=== PATIENT | female | born 1980 | race Caucasian/White ===

== ENCOUNTER 2016-11-03 14:10 | Emergency (ER) | payer MEDICAID ==
[~2016-11-03 14:10] MED LIST: PRENCAP6 PO; VENTAER INH
--- NOTE | 2016-11-03 16:06 | PD ---
HPI Chief Complaint conTractions Date Seen: Nov 03, 2016 Travel History International Travel<30 Days: No Contact w/Intl Traveler<30Days: No Known Affected Area: No History of Present Illness HPI This 36-year-old white female previous and subsequent 2 presents c/o of pain and contractions no bleeding or SROM Para: 3 : 6 History Obstetric History Obstetric History 1 , 2 VBACs Past Surgical History Narrative Surgical One section Family History Family History: Negative Social History Alcohol Use: No Tobacco Use: No Substance Abuse: No Allergies-Medications (Allergen,Severity, Reaction): Coded Allergies: No Known Allergies (Unverified , 04/24/16) Home Meds Active Scripts [id number] 18 Gm Aero2 Puff INH Q4H PRN (WHEEZING) #1 BOX Prov:AbdoulCharisma 01/29/16 Reported Medications Mv & Min W/Fe Fumarat ( 1) Cap1 Cap PO DAILY 04/24/16 Review of Systems General / Constitutional: No: Fever, Weight Gain, Chills, Other Gastrointestinal: Abdominal Pain Physical Exam Narrative GENERAL: Well-nourished, well-developed patient. SKIN: Warm and dry. HEAD: Normocephalic and atraumatic. EYES: No scleral icterus. No injection or drainage. ENT: No nasal drainage noted. Mucous membranes pink. Airway patent. NECK: Supple, trachea midline. No JVD. CARDIOVASCULAR: Regular rate and rhythm without murmurs, gallops, or rubs. RESPIRATORY: Breath sounds equal bilaterally. No accessory muscle use. BREASTS: Bilateral exam showed no masses , no retractions, no nipple discharge. ABDOMEN/GI: Abdomen soft, non-tender, bowel sounds present, no rebound, no guarding Gravid to [-term] weeks size Fundal Height: [-37 cm] GENITOURINARY: External Genitalia: intact and normal in appearance BUS glands: [-] Cervix: [-] Posterior Dilatation: [-3] Effacement: [50-] Station: [-3] Presentation: [vtx-] Membranes: [intact ] Uterine Contractions: [Irregular-] FHT's: Category: [1-] Baseline: [-144] Reactive: [yes-] Variability: [mod-] Decels: [none-] EXTREMITIES: No cyanosis or edema. BACK: Nontender without obvious deformity. No CVA tenderness. NEUROLOGICAL: Awake and alert. Motor and sensory grossly within normal limits. Five out of 5 muscle strength in all muscle groups. Normal speech. Data Data Orders Vital Signs (Adult) .ON ADMISSION (11/03/16 15:40) ^ Labor Status (11/03/16 15:40) Urinalysis - C+S If Indicated (11/03/16 15:40) MDM Interpretation(s) Condition is 36-year-old white female's previous and VBACs 38 weeks complaining of pain and contractions denies bleeding or rupture the membranes. heart rate tracing is reactive and she is jose irregularly Plan Patient is 38 weeks jose irregularly with the false labor-like pattern, heart rate tracing is reactive cervix is 3 cm fairly thick and posterior and is unchanged over the last hour of observation, patient desires a pain medication will give her an IM injection of Demerol Phenergan To go home to rest and return for increasing pain or problems worsening of labor etc. Diagnosis Diagnosis: Primary Impression: False labor after 37 weeks of gestation without delivery Additional Impression: Previous delivery, antepartum Disposition: DISCHARGE HOME Condition: Stable Patient Instructions: General Instructions Departure Forms: Tests/Procedures Huang Arreola II, MD Nov 03, 2016 16:06
[2016-11-03] MEDS ORDERED: MEPERIDINE HCL 50 MG/ML VIAL IM ONE (16:15)
[2016-11-03] MEDS ORDERED: PROMETHAZINE INJ 25 MG/ML VIAL IM ONE (16:15)
[2016-11-03 16:30] LABS: BACTERIA, URINE RARE /hpf; BLOOD, URINE NEG (NEG); COMMENT (UR) CULTURE INDICATED; CULTURE IF INDICATED CULTURE INDICATED; GLUCOSE,URINE TRACE mg/dL (NEG); KETONE, URINE NEG (NEG); MUCUS URINE MANY /lpf (OCC); NITRITE,URINE NEG (NEG); SQUAMOUS EPITHELIAL CELL URINE 11 /hpf (0-5); URINE COLOR YELLOW (YELLW/STRAW)
[2017-01-05] MEDS ORDERED: PREN29TA PO (11:06)
[2017-01-09] MEDS ORDERED: VENTAER INH (06:22)
== END 2016-11-03 16:40 | disposition home or self-care (01) ==
LOC: HOBED 14:10
DX: O47.1 False labor at or after 37 completed weeks of gestation (principal); O34.219 Maternal care for unspecified type scar from previous cesarean delivery; Z3A.38 38 weeks gestation of pregnancy; R82.90 Unspecified abnormal findings in urine
CPT/HCPCS: 59025; 81001; 87086; 96372; 99284; J2175; J2550

== ENCOUNTER 2016-11-17 12:50 | Inpatient (IN) | payer MEDICAID ==
[2016-11-17] VITALS (74 sets, daily range): BP systolic 110–161; BP diastolic 50–87; PULSE 68–91; RESP 16–20; TEMP 97.8–98.1
[2016-11-17] MEDS ORDERED: MINERAL OIL 10 ML VIAL TOP PRN (13:45)
[2016-11-17] MEDS ORDERED: LIDOCAINE HCL 1% 50 ML VIAL INFIL PRN (13:45)
[2016-11-17] MEDS ORDERED: OXYTOCIN 30 UNITS 500ML PREMIX IV ONE (13:45)
[2016-11-17] MEDS ORDERED: CITRIC ACID-SODIUM CITRATE LIQ 30 ML UDC PO SCH (13:45)
[2016-11-17] MEDS ORDERED: NS 500 ML BOLUS IV PRN (13:45)
[2016-11-17] MEDS ORDERED: LACTATED RINGER'S 1000 ML BOLUS IV PRN (13:45)
[2016-11-17] MEDS ORDERED: LIDOCAINE HCL 1% 50 ML VIAL I-DERMAL PRN (13:45)
[2016-11-17] MEDS ORDERED: NS 1000 ML IV PRN (13:45)
[2016-11-17] MEDS: LACTATED RINGER'S 1000 ML IV SCH ×2 (13:51→14:59)
[2016-11-17] MEDS ORDERED: OXYTOCIN 30 UNITS/NS 500ML PREMIX IV SCH (14:00)
[2016-11-17 14:10] LABS: AUTOMATED NEUTROPHIL # 6.2 TH/MM3 (1.8-7.7); BASOPHIL % 0.4 % (0.0-2.0); EOSINOPHIL % 0.5 % (0.0-4.0); HEMATOCRIT 36.8 % (35.0-46.0); HEMO FLAGS DIFF FINAL; LYMPH % 21.6 % (9.0-44.0); LYMPHOCYTE # 1.9 TH/MM3 (1.0-4.8); MEAN CELL VOLUME 81.9 FL (80.0-100.0); MEAN CORPUSCULAR HEMOGLOBIN 27.5 PG (27.0-34.0); MEAN CORPUSCULAR HGB CONC 33.6 % (32.0-36.0); MONO % 6.7 % (0.0-8.0); NEUT % 70.8 % (16.0-70.0); PLATELET COUNT 232 TH/MM3 (150-450); RED CELL DISTRIBUTION WIDTH 14.7 % (11.6-17.2); WHITE BLOOD COUNT 8.7 TH/MM3 (4.0-11.0)
[2016-11-17 14:16] LABS: BACTERIA, URINE FEW /hpf; BLOOD, URINE NEG (NEG); COMMENT (UR) CULT NOT INDICATED; CULTURE IF INDICATED CULT NOT INDICATED; GLUCOSE,URINE NEG (NEG); KETONE, URINE TRACE mg/dL (NEG); MUCUS URINE MOD /lpf (OCC); NITRITE,URINE NEG (NEG); SQUAMOUS EPITHELIAL CELL URINE 3 /hpf (0-5); URINE COLOR YELLOW (YELLW/STRAW)
[2016-11-17] MEDS ORDERED: PROT40TA PO (14:32)
[2016-11-17] MEDS ORDERED: fentaNYL 2MCG-BUPIV 0.125% INJ 100 ML ONE (14:36)
[2016-11-17] MEDS ORDERED: ePHEDrine/NS 50 MG/5 ML SYR ONE (14:37)
[2016-11-17] MEDS ORDERED: MEASLES, MUMPS, RUBELLA VACCINE 0.5 ML VIAL SQ ONE (16:00)
[2016-11-17] MEDS ORDERED: DIPHTH/TETANUS/ACEL PERTUSSIS (BOOSTER) 0.5 ML VIAL/PFS IM ONE (16:00)
[2016-11-17] MEDS ORDERED: ePHEDrine/NS 50 MG/5 ML SYR IV PRN (17:00)
[2016-11-17] MEDS ORDERED: fentaNYL 2MCG-BUPIV 0.125% INJ 100 ML EPIDURAL SCH (17:00)
[2016-11-17] MEDS ORDERED: DO NOT ADMINISTER ANTICOAGULANTS XX PRN (17:00)
[2016-11-17] MEDS ORDERED: NO SYSTEM NARCOTICS XX PRN (17:00)
[2016-11-17] MEDS ORDERED: ONDANSETRON HCL 4 MG/2 ML VIAL ONE (17:57)
[2016-11-17] MEDS ORDERED: ONDANSETRON HCL 4 MG/2 ML VIAL IV PUSH ONE ×2 (18:45→20:30)
[2016-11-17] MEDS ORDERED: DOCUSATE SODIUM 50 MG/SENNA 8.6 MG TAB PO PRN (21:45)
[2016-11-17] MEDS ORDERED: ACETAMINOPHEN 325 MG TAB PO PRN (21:45)
[2016-11-17] MEDS ORDERED: BENZOCAINE 20% TOPICAL SPRAY 60 ML CAN TOPICAL PRN (21:45)
[2016-11-17] MEDS ORDERED: SODIUM CHLORIDE 0.9% FLUSH 5 ML FLUSH IV PRN (21:45)
[2016-11-17] MEDS ORDERED: ALUMINUM/MAGNESIUM/SIMETH 30 ML CUP PO PRN (21:45)
[2016-11-17] MEDS ORDERED: OXYTOCIN 10 UNIT/ML AMP XX PRN (21:45)
[2016-11-17] MEDS ORDERED: OXYTOCIN 30 UNITS-500ML PREMIX 500 ML IV ONE (21:45)
[2016-11-17] MEDS ORDERED: oxyCODONE/ACETAMINOPHEN 5 MG/325 MG TAB PO PRN (21:45)
[2016-11-17] MEDS ORDERED: WITCH HAZEL 50%/GLYCERIN 12.5% 40 PAD JAR TOPICAL PRN (21:45)
[2016-11-17] MEDS ORDERED: ZOLPIDEM TARTRATE 5 MG TAB PO PRN (21:45)
[2016-11-17] MEDS ORDERED: ONDANSETRON ODT 4 MG TAB PO PRN (21:45)
--- NOTE | 2016-11-17 21:49 | PD.OB.DELI ---
Delivery Date: Nov 17, 2016 Anesthesia: Epidural Episiotomy: None Vaginal Delivery: Normal Presentation: Occiput anterior Nuchal Cord: x1 Infant: Female, Single One Minute : 8 Five Minute : 9 Weight: 8-1 Infant Care: Suctioned, Spontaneous crying, Responded to stimulation Placenta: Spontaneous delivery, Intact, 3 vessel cord Laceration: No lacerations Tyler Cuenca MD Nov 17, 2016 21:49
[2016-11-18] MEDS: IBUPROFEN 600 MG TAB PO PRN ×4 (01:43→23:01)
[2016-11-18 08:00] VITALS: BP 106/67; PULSE 74; RESP 20; TEMP 97.6; O2SAT 96
[2016-11-18] MEDS ORDERED: SODIUM CHLORIDE 0.9% FLUSH 5 ML FLUSH IV SCH (09:00)
[2016-11-18] MEDS: oxyCODONE/ACETAMINOPHEN 5 MG/325 MG TAB PO PRN ×3 (13:02→21:18)
[2016-11-18] MEDS: LACTATED RINGER'S 1000 ML IV SCH (13:45)
[2016-11-18 19:30] VITALS: BP 113/61; PULSE 75; RESP 16
[2016-11-19] MEDS: oxyCODONE/ACETAMINOPHEN 5 MG/325 MG TAB PO PRN ×3 (02:26→12:59)
[2016-11-19] MEDS: IBUPROFEN 600 MG TAB PO PRN ×2 (06:54→12:59)
[2016-11-19] MEDS ORDERED: INFLUENZA VIRUS VACCINE (QUADRIVALENT) 0.5 ML SYR IM ONE (10:00)
[2016-11-19] MEDS ORDERED: PERC5TAB12 PO (14:16)
[2017-01-05] MEDS ORDERED: PREN29TA PO (11:06)
[2017-01-09] MEDS ORDERED: VENTAER INH (06:22)
== END 2016-11-19 15:40 | disposition home or self-care (01) | DRG 775 ==
LOC: H2EA 12:50 → H1EA 23:26
PROVIDERS: ADMIT Obstetrics & Gynecology; ATTEND Obstetrics & Gynecology
PROC: 10E0XZZ Delivery of Products of Conception, External Approach (ICD-10-PCS; principal; 2016-11-17)
PROC: 3E0R3CZ (ICD-10-PCS; 2016-11-17)
PROC: 00HU33Z Insertion of Infusion Device into Spinal Canal, Percutaneous Approach (ICD-10-PCS; 2016-11-17)
DX: O69.81X0 Labor and delivery complicated by cord around neck, without compression, not applicable or unspecified (principal); Z37.0 Single live birth; Z3A.00 Weeks of gestation of pregnancy not specified
CPT/HCPCS: 81001; 85025; 86900; 86901; 90686; 90715; J2405; J2590; J7120; Q2038

== ENCOUNTER → 2017-01-09 | Day surgery (SDC) | payer MEDICAID ==
--- NOTE | 2017-01-08 22:24 | MH ---
cc: OLEG SANZ DATE OF ADMISSION 01/09/2017 DATE OF 1980 HISTORY OF THE PRESENT ILLNESS The patient is a 36-year-old 6, 0-4-0-2-4 who presents with undesired fertility. She is approximately seven weeks and desires permanent sterilization. PAST MEDICAL HISTORY Significant for: 1. Asthma. 2. Headaches. PAST SURGICAL HISTORY Significant for: section 2002. OB HISTORY She had six pregnancies, four full-term vaginal deliveries, three of those after a section and two spontaneous miscarriages. 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 SOCIAL HISTORY Negative for cigarettes, alcohol or street drugs. MEDICATIONS Are: 1. . 2. Advair. 3. Albuterol. 4. Fioricet as needed for migraines. FAMILY HISTORY Noncontributory. PHYSICAL EXAMINATION VITAL SIGNS: Her weight is 107. Her height is 5'2". Her blood pressure is 116/68. GENERAL: She is in no acute distress. HEART: Regular rate and rhythm. LUNGS: Clear to auscultation bilaterally. ABDOMEN: Soft. Nontender. Nondistended. EXTREMITIES: Lower extremities are nontender, non edematous. IMPRESSION Undesired fertility, PLAN Laparoscopic Bilateral Tubal ligation risks, benefits, alternatives reviewed. pt desires to proceed. MD HERBERTH Dumont/SYDNEY /8:56 PM /9:13 PM ROSA
[~2017-01-09] VITALS: Ht 158.8 cm; Wt 86.5 kg
[~2017-01-09] MED LIST changes: +ACETAMINOPHEN 1000 MG/100 ML VIAL IV ONE; +BUPIVACAINE/EPINEPHRINE 0.25% 50 ML VIAL ONE; +DEXAMETHASONE SOD PHOS 4 MG/ML VIAL ONE; +DO NOT ADM ANY ANTICOAGULANT DRUGS XX PRN; +FAMOTIDINE 20 MG/2 ML VIAL ONE; +INSULIN HUMAN REGULAR 1,000 UNITS/10 ML VIAL SQ PRN; +KETOROLAC TROMETHAMINE 30 MG/ML (IVP) VIAL IV PUSH ONE; +LACTATED RINGER'S 1000 ML INJ 1,000 ML IV ONE; +LACTATED RINGER'S 1000 ML IV SCH; +METOPROLOL TARTRATE 25 MG TAB PO PRN; +NEOSTIGMINE 3 MG/3 ML SYR IV ONE; +ONDANSETRON HCL 4 MG/2 ML VIAL IV PUSH ONE; +ONDANSETRON HCL 4 MG/2 ML VIAL IV PUSH PRN; +PHENYLEPH/NS 1000 MCG/10 ML SYR IV ONE; +PREN29TA PO; +PROPOFOL 200 MG/20 ML AMP IV ONE; +RESP: ALBUTEROL 2.5 MG/3 ML NEB (PRN) ONE; +SODIUM CHLORID 0.9% 500 ML IV SCH; +ceFAZolin 2 GM PREMIX 50 ML IV SCH; +ceFAZolin 2 GM PREMIX 50 ML ONE; +fentaNYL CITRATE 250 MCG/5 ML AMP ONE
[2017-01-09 06:23] VITALS: BP 109/62; PULSE 67; RESP 20; TEMP 97.7; O2SAT 97
[2017-01-09 06:37] LABS: AUTOMATED NEUTROPHIL # 4.3 TH/MM3 (1.8-7.7); BASOPHIL # 0.1 TH/MM3 (0-0.2); BASOPHIL % 0.7 % (0.0-2.0); EOSINOPHIL # 0.3 TH/MM3 (0-0.4); EOSINOPHIL % 3.2 % (0.0-4.0); HEMATOCRIT 37.2 % (35.0-46.0); HEMO FLAGS DIFF FINAL; LYMPH % 36.4 % (9.0-44.0); LYMPHOCYTE # 2.8 TH/MM3 (1.0-4.8); MEAN CELL VOLUME 79.6 FL (80.0-100.0); MEAN CORPUSCULAR HEMOGLOBIN 27.4 PG (27.0-34.0); MEAN CORPUSCULAR HGB CONC 34.5 % (32.0-36.0); MONO % 5.1 % (0.0-8.0); NEUT % 54.6 % (16.0-70.0); PLATELET COUNT 255 TH/MM3 (150-450); RED BLOOD COUNT 4.68 MIL/MM3 (4.00-5.30); RED CELL DISTRIBUTION WIDTH 14.1 % (11.6-17.2); WHITE BLOOD COUNT 7.8 TH/MM3 (4.0-11.0)
--- NOTE | 2017-01-09 09:16 | PD.OP ---
Operative Report Date of Surgery: Jan 09, 2017 Preoperative Diagnosis: Undesired fertility Postoperative Diagnosis: same Procedure: laparoscopic bilateral tubal ligation Anesthesia: CESIA Surgeon: Tyler Cuenca MD Secondary Social Studies Teacher(s): FANI Operation and Findings: The patient was consented. She was taken to the operating room. She was prepped and draped in a normal sterile fashion for surgery. Next, the acorn uterine manipulator was inserted into the uterus and the anterior lip of the cervix was grasped using a single-toothed tenaculum. Gloves were then changed. The umbilical fold was then injected with 25% Marcaine with epinephrine and then a 5 millimeter skin incision was made in the umbilical fold. Then using the 5 millimeter trocar and direct visualization, this was inserted. Pneumoperitoneum was then obtained. Next, a second 5 millimeter incision was made after Marcaine had been injected approximately two fingerbreadths above the pubic symphysis and a second 5 millimeter trocar was inserted under direct visualization. Next, the findings previously revealed were noted. The Kleppinger with a resistance meter were used to cauterize approximately a 30 centimeter segment of fallopian tube with good result. It was done initially on the patient's left and then on the patient's right. Once this was done, it was felt the procedure was complete. All instruments were removed from the patient's abdomen. It was deflated. The skin incisions were closed using 4-0 Monocryl suture. All instruments were also removed from the patient's vagina. She was then awakened and taken to the recovery room in stable condition. Tyler Cuenca MD Jan 09, 2017 09:16
[2017-01-09 10:38] VITALS: BP 104/58; PULSE 55; RESP 20; TEMP 97.7; O2SAT 97
== END | disposition home or self-care (01) ==
LOC: HSDC 05:45
PROVIDERS: ATTEND Obstetrics & Gynecology
DX: Z30.2 Encounter for sterilization (principal); J45.909 Unspecified asthma, uncomplicated; Z79.51 Long term (current) use of inhaled steroids
CPT/HCPCS: 00851; 58670; 84703; 85025; 86850; 86900; 86901; 94664; J0131; J0690; J1100; J2370; J2405; J2710; J3010; J7120; J7613